=== PATIENT | male | born 1950 | race Caucasian/White ===

== ENCOUNTER 2017-02-17 14:44 | Inpatient (IN) | payer MEDICARE, MEDICAID ==
[~2017-02-17] VITALS: Ht 177.8 cm; Wt 95.0 kg
[2017-02-17] MEDS ORDERED: SODIUM CHLORIDE FLUSH 10ML SYR IVF ONE (15:00)
[2017-02-17] MEDS ORDERED: SODIUM CHLORIDE 0.9% 1,000ML IVBOLUS ONE (15:00)
[2017-02-17] MEDS ORDERED: PLEASE ENTER ALLERGIES MC SCH ×2 (15:00)
[2017-02-17] MEDS ORDERED: ONDANSETRON 2MG/ML, 2ML IVPush ONE (15:00)
[2017-02-17] MEDS ORDERED: ONDANSETRON 2MG/ML, 2ML ONE (15:05)
[2017-02-17 15:06] LABS: HEMATOCRIT 42.9 % (39.2-51.8); HEMOGLOBIN 14.4 g/dL (13.7-18.0); WHITE BLOOD COUNT 18.2 x10^3/uL (3.4-10)
[2017-02-17 15:17] LABS: ASPARTATE AMINO TRANSFERASE 13 U/L (15-37); BLOOD UREA NITROGEN 28 mg/dL (7-18)
[2017-02-17 15:50] LABS: DIFF TOTAL CELLS COUNTED 100 CELL DIFF
[2017-02-17 15:52] LABS: ANISOCYTOSIS 1+
[2017-02-17 15:53] LABS: VERIFY COUNTS? YES
[2017-02-17] MEDS ORDERED: ACETAMINOPHEN 500 MG TABLET ONE (17:14)
[2017-02-17] MEDS ORDERED: ACETAMINOPHEN 500 MG TABLET PO ONE (17:30)
[2017-02-17] MEDS ORDERED: LIDOCAINE 1%, 20ML ONE (18:13)
[2017-02-17] MEDS ORDERED: PHARMACOKINETIC CONSULTATION MC ONE ×2 (19:00→22:00)
[2017-02-17] MEDS ORDERED: VANCOMYCIN PER PHARMACY MC PRN ×2 (19:00→21:30)
[2017-02-17] MEDS ORDERED: VANCOMYCIN 1,800 MG in SODIUM CHLORIDE 0.9% 250 ML IV ONE (19:00)
[2017-02-17] MEDS ORDERED: CEFTRIAXONE 1,000 MG IM ONE (19:00)
[2017-02-17] MEDS ORDERED: CEFTRIAXONE PMX 1GM/50ML 50 ML ONE ×2 (19:20→19:33)
[2017-02-17] MEDS ORDERED: CEFTRIAXONE PMX 2GM/50ML 50 ML IV SCH (19:30)
[2017-02-17] MEDS ORDERED: CEFTRIAXONE PMX 2GM/50ML 50 ML IV ONE (19:35)
[2017-02-17] MEDS ORDERED: BUPR1FIL5 SL (19:57)
[2017-02-17] MEDS ORDERED: IBUP-1223 PO (19:57)
[2017-02-17] MEDS ORDERED: MIRT7.5T8 PO (19:57)
[2017-02-17] MEDS ORDERED: CLON0.25 PO (19:57)
[2017-02-17] MEDS ORDERED: TERA10CA3 PO (19:57)
[2017-02-17] MEDS ORDERED: ONDANSETRON 2MG/ML, 2ML IVPush PRN (21:30)
[2017-02-17] MEDS ORDERED: ACETAMINOPHEN 325 MG TABLET PO PRN (21:30)
[2017-02-17] MEDS ORDERED: morphine SULFATE 10 MG/ML, 1ML IVPush PRN (21:30)
[2017-02-17] MEDS: TERAZOSIN 5MG CAPSULE PO SCH (21:30)
[2017-02-17 22:00] VITALS: BP 116/78
[2017-02-17] MEDS ORDERED: PHARMACOKINETIC MONITORING MC PRN (22:00)
[2017-02-17] MEDS: ENOXAPARIN 40 MG/0.4 ML SQ SCH (23:04)
[2017-02-17] MEDS: MIRTAZAPINE 15 MG TABLET PO SCH (23:06)
[2017-02-17] MEDS: NS + 20MEQ KCL 1,000 ML IV SCH (23:06)
[2017-02-18] VITALS (9 sets, daily range): BP systolic 96–111; BP diastolic 54–73
[2017-02-18 05:58] LABS: BLOOD UREA NITROGEN 24 mg/dL (7-18)
[2017-02-18 06:06] LABS: HEMATOCRIT 36.5 % (39.2-51.8); HEMOGLOBIN 12.2 g/dL (13.7-18.0); WHITE BLOOD COUNT 11.1 x10^3/uL (3.4-10)
[2017-02-18] MEDS: NS + 20MEQ KCL 1,000 ML IV SCH (06:33)
[2017-02-18] MEDS ORDERED: [UNRECOGNIZED DRUG - OTHER] SL SCH (09:00)
[2017-02-18] MEDS ORDERED: BUPRENORPHINE HCL SL SCH (09:00)
[2017-02-18] MEDS ORDERED: NALOXONE HCL SL SCH (09:00)
[2017-02-18] MEDS: VANCOMYCIN 1,800 MG in SODIUM CHLORIDE 0.9% 250 ML IV SCH ×2 (10:09→22:43)
[2017-02-18] MEDS: SENNA/DOCUSATE TABLET PO SCH (10:09)
[2017-02-18] MEDS ORDERED: DIGOXIN 0.25 MG/ML, 2ML IVPush ONE (11:00)
[2017-02-18] MEDS ORDERED: FILTER 0.22 MICRON IV PRN (13:30)
[2017-02-18] MEDS ORDERED: AMIODARONE 150 MG in DEXTROSE 5% 100 ML IV ONE (13:30)
[2017-02-18] MEDS: IBUPROFEN 200 MG TABLET PO PRN ×2 (14:03→22:43)
[2017-02-18] MEDS: AMIODARONE 900 MG in DEXTROSE 5% 482 ML IV PRN (14:10)
[2017-02-18] MEDS ORDERED: BUPRENORPHINE 2 MG SL SCH (17:00)
[2017-02-18] MEDS: NALOXONE SL SCH (17:22)
[2017-02-18] MEDS: BUPRENORPHINE SL SCH (17:22)
[2017-02-18] MEDS ORDERED: METOPROLOL TARTRATE 25 MG TABLET PO SCH (18:30)
[2017-02-18] MEDS: CEFTRIAXONE PMX 1GM/50ML 50 ML IV SCH (19:57)
[2017-02-18] MEDS: DIGOXIN 0.25 MG/ML, 2ML IVPush SCH (21:34)
[2017-02-18] MEDS: ENOXAPARIN 40 MG/0.4 ML SQ SCH (21:34)
[2017-02-18] MEDS: MIRTAZAPINE 15 MG TABLET PO SCH (22:49)
[2017-02-18] MEDS: TERAZOSIN 5MG CAPSULE PO SCH (22:51)
[2017-02-19 02:13] VITALS: BP 106/68
[2017-02-19 05:30] VITALS: BP 100/67
[2017-02-19] MEDS: ASPIRIN 325 MG TABLET EC PO SCH (05:32)
[2017-02-19] MEDS: METOPROLOL TARTRATE 25 MG TABLET PO SCH ×2 (05:32→16:46)
[2017-02-19 05:35] LABS: HEMATOCRIT 34.7 % (39.2-51.8); HEMOGLOBIN 11.7 g/dL (13.7-18.0); WHITE BLOOD COUNT 10.5 x10^3/uL (3.4-10)
[2017-02-19 05:45] LABS: BLOOD UREA NITROGEN 20 mg/dL (7-18)
[2017-02-19] MEDS: DIGOXIN 0.25 MG/ML, 2ML IVPush SCH ×2 (09:00→11:25)
[2017-02-19] MEDS: BUPRENORPHINE SL SCH ×2 (09:12→16:46)
[2017-02-19] MEDS: NALOXONE SL SCH ×2 (09:12→16:46)
[2017-02-19] MEDS: SENNA/DOCUSATE TABLET PO SCH (09:15)
[2017-02-19] MEDS: VANCOMYCIN 1,800 MG in SODIUM CHLORIDE 0.9% 250 ML IV SCH ×2 (09:17→21:45)
[2017-02-19] MEDS: IBUPROFEN 200 MG TABLET PO PRN ×2 (09:18→21:46)
[2017-02-19 09:24] VITALS: BP 101/68
[2017-02-19] MEDS ORDERED: POTASSIUM CHLORIDE 40 MEQ in SODIUM CHLORIDE 0.9% 500 ML IV ONE (12:00)
[2017-02-19] MEDS: AMIODARONE 900 MG in DEXTROSE 5% 482 ML IV PRN (12:43)
[2017-02-19] MEDS: OxyconTIN ER 10 MG TAB.ER PO SCH (15:00)
[2017-02-19] MEDS ORDERED: OXYcodone IR 5MG TABLET PO PRN (15:00)
[2017-02-19 15:01] VITALS: BP 113/76
[2017-02-19 19:23] VITALS: BP 105/72
[2017-02-19] MEDS: CEFTRIAXONE PMX 1GM/50ML 50 ML IV SCH (20:08)
[2017-02-19] MEDS: ENOXAPARIN 40 MG/0.4 ML SQ SCH (21:45)
[2017-02-19] MEDS: MIRTAZAPINE 15 MG TABLET PO SCH (21:46)
[2017-02-19] MEDS: TERAZOSIN 5MG CAPSULE PO SCH (21:47)
[2017-02-20 01:07] VITALS: BP 106/71
[2017-02-20] MEDS: OxyconTIN ER 10 MG TAB.ER PO SCH ×2 (03:00→15:00)
[2017-02-20 05:55] VITALS: BP 118/77
[2017-02-20] MEDS: METOPROLOL TARTRATE 25 MG TABLET PO SCH ×2 (05:55→18:26)
[2017-02-20] MEDS: ASPIRIN 325 MG TABLET EC PO SCH (05:55)
[2017-02-20] MEDS: NALOXONE SL SCH ×2 (08:00→17:00)
[2017-02-20] MEDS: BUPRENORPHINE SL SCH ×2 (08:00→17:00)
[2017-02-20] MEDS: SENNA/DOCUSATE TABLET PO SCH (09:00)
[2017-02-20 09:11] VITALS: BP 113/74
[2017-02-20] MEDS ORDERED: KETAMINE 10 MG/ML, 20ML ONE (09:26)
[2017-02-20] MEDS ORDERED: FENTANYL PF 250 MCG/5ML ONE ×2 (09:26→10:11)
[2017-02-20] MEDS ORDERED: ROPIvacaine/PF 0.5%, 30 ML ONE (09:30)
[2017-02-20] MEDS ORDERED: ONDANSETRON 2MG/ML, 2ML ONE (09:52)
[2017-02-20] MEDS ORDERED: PROPOFOL 10 MG/ML, 20ML ONE (09:52)
[2017-02-20] MEDS ORDERED: KETOROLAC 30 MG/1 ML ONE (09:52)
[2017-02-20] MEDS ORDERED: PHENYLEPHRINE 10 MG/ML ONE (09:52)
[2017-02-20] MEDS ORDERED: EPHEDRINE 50 MG/ML, 1ML ONE (09:52)
[2017-02-20] MEDS: VANCOMYCIN 1,800 MG in SODIUM CHLORIDE 0.9% 250 ML IV SCH ×2 (10:00→15:55)
[2017-02-20] MEDS ORDERED: HYDROmorphone 2 MG/ML, 1ML ONE (10:08)
[2017-02-20] MEDS ORDERED: ALBUTEROL SULFATE 2.5 MG/3 ML NPPB PRN (11:30)
[2017-02-20] MEDS ORDERED: PROMETHAZINE 25 MG/ML, 1ML IV PRN (11:30)
[2017-02-20] MEDS ORDERED: METOPROLOL 1 MG/ML, 5ML IV PRN (11:30)
[2017-02-20] MEDS ORDERED: hydrALAzine 20 MG/ML, 1ML IV PRN (11:30)
[2017-02-20] MEDS ORDERED: ACETAMINOPHEN 325 MG TABLET PO PRN (11:30)
[2017-02-20] MEDS ORDERED: D5%-0.45NACL+KCL 20MEQ 1,000 ML IV SCH (12:12)
[2017-02-20] MEDS ORDERED: FENTANYL PF 100 MCG/2ML ONE (12:16)
[2017-02-20] MEDS: FENTANYL PF 100 MCG/2ML IV PRN ×2 (12:19→12:39)
[2017-02-20] MEDS: FENTANYL 1500 MCG/30 ML PCA IV PRN (13:00)
[2017-02-20] MEDS ORDERED: TRANEXAMIC ACID 1,000 MG in SODIUM CHLORIDE 0.9% 100 ML IVPB ONE (13:15)
[2017-02-20 15:59] VITALS: BP 93/62
[2017-02-20 18:55] VITALS: BP 98/63
[2017-02-20] MEDS: SODIUM CHLORIDE 0.9% 1,000 ML IV SCH (20:20)
[2017-02-20] MEDS: AMIODARONE 900 MG in DEXTROSE 5% 482 ML IV PRN (20:26)
[2017-02-20] MEDS: CEFAZOLIN PMX 2GM/50ML 50 ML IVPB SCH (20:30)
[2017-02-20] MEDS: MIRTAZAPINE 15 MG TABLET PO SCH (21:48)
[2017-02-20] MEDS: TERAZOSIN 5MG CAPSULE PO SCH (21:48)
[2017-02-21] MEDS: FENTANYL 1500 MCG/30 ML PCA IV PRN ×2 (01:18→11:58)
[2017-02-21 01:27] VITALS: BP 93/61
[2017-02-21] MEDS: OxyconTIN ER 10 MG TAB.ER PO SCH ×2 (03:03→15:00)
[2017-02-21] MEDS: VANCOMYCIN 1,800 MG in SODIUM CHLORIDE 0.9% 250 ML IV SCH ×3 (03:21→21:04)
[2017-02-21] MEDS: ENOXAPARIN 40 MG/0.4 ML SQ SCH (05:42)
[2017-02-21] MEDS: CEFAZOLIN PMX 2GM/50ML 50 ML IVPB SCH (05:42)
[2017-02-21] MEDS: METOPROLOL TARTRATE 25 MG TABLET PO SCH ×2 (05:43→16:57)
[2017-02-21] MEDS: ASPIRIN 325 MG TABLET EC PO SCH (05:43)
[2017-02-21 06:05] LABS: BLOOD UREA NITROGEN 19 mg/dL (7-18)
[2017-02-21 06:44] LABS: HEMATOCRIT 30.9 % (39.2-51.8); HEMOGLOBIN 10.2 g/dL (13.7-18.0); WHITE BLOOD COUNT 17.2 x10^3/uL (3.4-10)
[2017-02-21 07:00] VITALS: BP 91/61
[2017-02-21] MEDS: BUPRENORPHINE SL SCH ×2 (08:00→16:07)
[2017-02-21] MEDS: NALOXONE SL SCH ×2 (08:00→16:07)
[2017-02-21] MEDS: SENNA/DOCUSATE TABLET PO SCH (08:05)
[2017-02-21] MEDS: AMIODARONE 200 MG TABLET PO SCH ×2 (11:59→21:05)
[2017-02-21] MEDS: KETOROLAC 30 MG/1 ML IV SCH ×2 (12:02→21:04)
[2017-02-21 13:20] VITALS: BP 102/56
[2017-02-21 20:35] VITALS: BP 113/70
[2017-02-21] MEDS: TERAZOSIN 5MG CAPSULE PO SCH (21:05)
[2017-02-21] MEDS: MIRTAZAPINE 15 MG TABLET PO SCH (21:05)
[2017-02-21] MEDS: SODIUM CHLORIDE 0.9% 1,000 ML IV SCH (23:33)
[2017-02-22] MEDS: OxyconTIN ER 10 MG TAB.ER PO SCH ×2 (03:00→15:00)
[2017-02-22 03:24] VITALS: BP 103/66
[2017-02-22] MEDS: KETOROLAC 30 MG/1 ML IV SCH (04:28)
[2017-02-22 05:00] VITALS: BP 119/72
[2017-02-22] MEDS: FENTANYL 1500 MCG/30 ML PCA IV PRN ×3 (05:04→23:42)
[2017-02-22] MEDS: ASPIRIN 325 MG TABLET EC PO SCH (05:06)
[2017-02-22] MEDS: ENOXAPARIN 40 MG/0.4 ML SQ SCH (05:06)
[2017-02-22] MEDS: METOPROLOL TARTRATE 25 MG TABLET PO SCH ×2 (05:06→17:36)
[2017-02-22 09:00] VITALS: BP 104/63
[2017-02-22] MEDS: SENNA/DOCUSATE TABLET PO SCH (09:11)
[2017-02-22] MEDS: AMIODARONE 200 MG TABLET PO SCH ×2 (09:12→21:06)
[2017-02-22] MEDS: POLYETHYLENE GLYCOL 17 GM PACKET PO PRN (09:12)
[2017-02-22] MEDS ORDERED: FUROSEMIDE 40 MG/4 ML IV ONE (11:00)
[2017-02-22] MEDS: CEPHALEXIN 500 MG CAPSULE PO SCH ×3 (11:58→23:42)
[2017-02-22 14:46] VITALS: BP 103/65
[2017-02-22] MEDS: VANCOMYCIN 1,800 MG in SODIUM CHLORIDE 0.9% 250 ML IV SCH (15:28)
[2017-02-22] MEDS: LACTOBACILLUS CHEW TABLET PO SCH ×2 (15:28→21:07)
[2017-02-22 19:15] VITALS: BP 106/61
[2017-02-22] MEDS: MIRTAZAPINE 15 MG TABLET PO SCH (21:07)
[2017-02-22] MEDS: TERAZOSIN 5MG CAPSULE PO SCH (21:07)
[2017-02-22 21:16] VITALS: BP 114/70
[2017-02-23] MEDS: OxyconTIN ER 10 MG TAB.ER PO SCH ×2 (00:56→13:22)
[2017-02-23 01:00] VITALS: BP 106/63
[2017-02-23] MEDS: METOPROLOL TARTRATE 25 MG TABLET PO SCH ×2 (05:46→18:10)
[2017-02-23] MEDS: FENTANYL 1500 MCG/30 ML PCA IV PRN ×2 (05:46→22:25)
[2017-02-23] MEDS: ASPIRIN 325 MG TABLET EC PO SCH (05:46)
[2017-02-23] MEDS: CEPHALEXIN 500 MG CAPSULE PO SCH ×4 (05:46→22:58)
[2017-02-23] MEDS: ENOXAPARIN 40 MG/0.4 ML SQ SCH (05:47)
[2017-02-23 05:50] VITALS: BP 99/60
[2017-02-23] MEDS: LACTOBACILLUS CHEW TABLET PO SCH ×3 (08:51→21:15)
[2017-02-23] MEDS: SENNA/DOCUSATE TABLET PO SCH (08:51)
[2017-02-23] MEDS: AMIODARONE 200 MG TABLET PO SCH ×2 (08:51→21:15)
[2017-02-23] MEDS: FUROSEMIDE 20 MG TABLET PO SCH (08:51)
[2017-02-23 09:31] VITALS: BP 100/62
[2017-02-23] MEDS: VANCOMYCIN 1,800 MG in SODIUM CHLORIDE 0.9% 250 ML IV SCH (09:48)
[2017-02-23] MEDS: ERGOCALCIFEROL 50,000 UNIT CAPSULE PO SCH (10:26)
[2017-02-23 15:39] VITALS: BP 104/65
[2017-02-23 18:46] VITALS: BP 109/73
[2017-02-23] MEDS: CEFTRIAXONE PMX 2GM/50ML 50 ML IV SCH (19:54)
[2017-02-23 21:13] VITALS: BP 114/77
[2017-02-23] MEDS: MIRTAZAPINE 15 MG TABLET PO SCH (21:15)
[2017-02-23] MEDS: TERAZOSIN 5MG CAPSULE PO SCH (21:15)
[2017-02-24] MEDS: OxyconTIN ER 10 MG TAB.ER PO SCH ×2 (01:02→13:08)
[2017-02-24 02:20] VITALS: BP 125/77
[2017-02-24 05:04] LABS: HEMATOCRIT 29.7 % (39.2-51.8); HEMOGLOBIN 9.9 g/dL (13.7-18.0); WHITE BLOOD COUNT 13.4 x10^3/uL (3.4-10)
[2017-02-24 05:08] LABS: BLOOD UREA NITROGEN 14 mg/dL (7-18)
[2017-02-24 05:34] VITALS: BP 101/65
[2017-02-24] MEDS: CEPHALEXIN 500 MG CAPSULE PO SCH ×4 (05:36→23:05)
[2017-02-24] MEDS: ENOXAPARIN 40 MG/0.4 ML SQ SCH (05:36)
[2017-02-24] MEDS: ASPIRIN 325 MG TABLET EC PO SCH (05:36)
[2017-02-24] MEDS: METOPROLOL TARTRATE 25 MG TABLET PO SCH ×2 (05:36→17:02)
[2017-02-24] MEDS: POLYETHYLENE GLYCOL 17 GM PACKET PO PRN (06:23)
[2017-02-24] MEDS ORDERED: FUROSEMIDE 40 MG/4 ML IV ONE (09:00)
[2017-02-24 09:03] VITALS: BP 107/72
[2017-02-24] MEDS: LACTOBACILLUS CHEW TABLET PO SCH ×3 (09:03→21:19)
[2017-02-24] MEDS: AMIODARONE 200 MG TABLET PO SCH ×2 (09:04→21:19)
[2017-02-24] MEDS: FUROSEMIDE 20 MG TABLET PO SCH (09:04)
[2017-02-24] MEDS: SENNA/DOCUSATE TABLET PO SCH (09:04)
[2017-02-24] MEDS: FENTANYL 1500 MCG/30 ML PCA IV PRN (11:30)
[2017-02-24 15:17] VITALS: BP 98/61
[2017-02-24 16:59] VITALS: BP 109/73
[2017-02-24] MEDS: CEFTRIAXONE PMX 2GM/50ML 50 ML IV SCH (19:23)
[2017-02-24 21:16] VITALS: BP 107/73
[2017-02-24] MEDS: MIRTAZAPINE 15 MG TABLET PO SCH (21:19)
[2017-02-24] MEDS: DOCUSATE 100 MG CAPSULE PO PRN (21:19)
[2017-02-24] MEDS: TERAZOSIN 5MG CAPSULE PO SCH (21:19)
[2017-02-25] VITALS (8 sets, daily range): BP systolic 93–100; BP diastolic 49–70
[2017-02-25] MEDS: OxyconTIN ER 10 MG TAB.ER PO SCH (01:04)
[2017-02-25] MEDS: FENTANYL 1500 MCG/30 ML PCA IV PRN (01:04)
[2017-02-25 05:28] LABS: HEMATOCRIT 31.2 % (39.2-51.8); HEMOGLOBIN 10.2 g/dL (13.7-18.0); WHITE BLOOD COUNT 12.2 x10^3/uL (3.4-10)
[2017-02-25] MEDS: METOPROLOL TARTRATE 25 MG TABLET PO SCH ×2 (05:52→17:35)
[2017-02-25] MEDS: CEPHALEXIN 500 MG CAPSULE PO SCH (05:52)
[2017-02-25] MEDS: ASPIRIN 325 MG TABLET EC PO SCH (05:52)
[2017-02-25] MEDS: ENOXAPARIN 40 MG/0.4 ML SQ SCH (05:52)
[2017-02-25] MEDS: POLYETHYLENE GLYCOL 17 GM PACKET PO PRN (06:37)
[2017-02-25] MEDS: HYDROcodone/APAP 5/325 TABLET PO PRN ×2 (09:16→17:35)
[2017-02-25] MEDS: LACTOBACILLUS CHEW TABLET PO SCH ×3 (09:16→21:47)
[2017-02-25] MEDS: FUROSEMIDE 20 MG TABLET PO SCH (09:16)
[2017-02-25] MEDS: SENNA/DOCUSATE TABLET PO SCH (09:16)
[2017-02-25] MEDS: AMIODARONE 200 MG TABLET PO SCH ×2 (09:17→21:48)
[2017-02-25] MEDS ORDERED: FUROSEMIDE 40 MG/4 ML IV ONE (11:00)
[2017-02-25] MEDS: OxyconTIN ER 15 MG TAB.ER PO SCH ×2 (11:00→23:13)
[2017-02-25] MEDS ORDERED: FUROSEMIDE 40 MG/4 ML IVPush ONE (15:30)
[2017-02-25] MEDS: CEFTRIAXONE PMX 2GM/50ML 50 ML IV SCH (19:48)
[2017-02-25] MEDS: MIRTAZAPINE 15 MG TABLET PO SCH (21:47)
[2017-02-25] MEDS: TERAZOSIN 5MG CAPSULE PO SCH (21:48)
[2017-02-25] MEDS: DOCUSATE 100 MG CAPSULE PO PRN (21:56)
[2017-02-26 01:13] VITALS: BP 99/60
[2017-02-26 03:32] VITALS: BP 101/63
[2017-02-26] MEDS: HYDROcodone/APAP 5/325 TABLET PO PRN ×3 (03:32→14:07)
[2017-02-26] MEDS: METOPROLOL TARTRATE 25 MG TABLET PO SCH ×2 (06:00→17:10)
[2017-02-26] MEDS: ENOXAPARIN 40 MG/0.4 ML SQ SCH (06:04)
[2017-02-26] MEDS: POLYETHYLENE GLYCOL 17 GM PACKET PO PRN (06:04)
[2017-02-26] MEDS: ASPIRIN 325 MG TABLET EC PO SCH (06:04)
[2017-02-26 06:05] VITALS: BP 99/64
[2017-02-26] MEDS: AMIODARONE 200 MG TABLET PO SCH ×2 (08:28→20:44)
[2017-02-26] MEDS: FUROSEMIDE 20 MG TABLET PO SCH (08:28)
[2017-02-26] MEDS: LACTOBACILLUS CHEW TABLET PO SCH ×3 (08:28→20:44)
[2017-02-26] MEDS: SENNA/DOCUSATE TABLET PO SCH (08:28)
[2017-02-26] MEDS: DOCUSATE 100 MG CAPSULE PO PRN (08:28)
[2017-02-26] MEDS: OxyconTIN ER 15 MG TAB.ER PO SCH ×2 (11:21→23:20)
[2017-02-26 12:50] VITALS: BP 104/61
[2017-02-26] MEDS: FUROSEMIDE 40 MG/4 ML IV SCH (14:07)
[2017-02-26] MEDS: MEPERIDINE/PF 25MG/0.5ML IVPush PRN ×2 (17:10→20:56)
[2017-02-26 17:11] VITALS: BP 99/65
[2017-02-26 19:19] VITALS: BP 104/68
[2017-02-26] MEDS: CEFTRIAXONE PMX 2GM/50ML 50 ML IV SCH (20:32)
[2017-02-26] MEDS: TERAZOSIN 5MG CAPSULE PO SCH (20:44)
[2017-02-26] MEDS: MIRTAZAPINE 15 MG TABLET PO SCH (20:44)
[2017-02-27 00:50] VITALS: BP 105/67
[2017-02-27] MEDS: MEPERIDINE/PF 25MG/0.5ML IVPush PRN ×6 (00:58→23:57)
[2017-02-27 05:26] LABS: BLOOD UREA NITROGEN 18 mg/dL (7-18)
[2017-02-27] MEDS: ASPIRIN 325 MG TABLET EC PO SCH (06:46)
[2017-02-27] MEDS: METOPROLOL TARTRATE 25 MG TABLET PO SCH ×2 (06:46→17:05)
[2017-02-27] MEDS: ENOXAPARIN 40 MG/0.4 ML SQ SCH (06:48)
[2017-02-27] MEDS: FUROSEMIDE 40 MG/4 ML IV SCH (07:46)
[2017-02-27] MEDS: LACTOBACILLUS CHEW TABLET PO SCH ×3 (07:47→19:49)
[2017-02-27] MEDS: SENNA/DOCUSATE TABLET PO SCH (07:47)
[2017-02-27] MEDS: FUROSEMIDE 20 MG TABLET PO SCH (07:47)
[2017-02-27] MEDS: AMIODARONE 200 MG TABLET PO SCH ×2 (07:47→19:50)
[2017-02-27 08:15] VITALS: BP 118/77
[2017-02-27] MEDS: OxyconTIN ER 15 MG TAB.ER PO SCH ×2 (10:42→22:30)
[2017-02-27 14:48] VITALS: BP 105/71
[2017-02-27 17:05] VITALS: BP 99/68
[2017-02-27] MEDS: CEFTRIAXONE PMX 2GM/50ML 50 ML IV SCH (19:14)
[2017-02-27 19:46] VITALS: BP 111/74
[2017-02-27] MEDS: TERAZOSIN 5MG CAPSULE PO SCH (19:50)
[2017-02-27] MEDS: MIRTAZAPINE 15 MG TABLET PO SCH (19:50)
[2017-02-27] MEDS ORDERED: ONDANSETRON 2MG/ML, 2ML IVPush PRN (21:00)
[2017-02-27] MEDS ORDERED: ACETAMINOPHEN 325 MG TABLET PO PRN (21:00)
[2017-02-28] MEDS: HYDROcodone/APAP 5/325 TABLET PO PRN ×6 (00:57→22:01)
[2017-02-28 01:06] VITALS: BP 106/63
[2017-02-28] MEDS: MEPERIDINE/PF 25MG/0.5ML IVPush PRN ×4 (04:32→20:20)
[2017-02-28 05:30] LABS: HEMATOCRIT 31.8 % (39.2-51.8); HEMOGLOBIN 10.4 g/dL (13.7-18.0); WHITE BLOOD COUNT 11.4 x10^3/uL (3.4-10)
[2017-02-28 05:34] LABS: BLOOD UREA NITROGEN 17 mg/dL (7-18)
[2017-02-28] MEDS: METOPROLOL TARTRATE 25 MG TABLET PO SCH ×2 (06:32→17:38)
[2017-02-28] MEDS: ENOXAPARIN 40 MG/0.4 ML SQ SCH (06:33)
[2017-02-28] MEDS: ASPIRIN 325 MG TABLET EC PO SCH (06:33)
[2017-02-28 06:34] VITALS: BP 111/66
[2017-02-28] MEDS: AMIODARONE 200 MG TABLET PO SCH ×2 (09:01→22:01)
[2017-02-28] MEDS: LACTOBACILLUS CHEW TABLET PO SCH ×3 (09:01→22:01)
[2017-02-28] MEDS: SENNA/DOCUSATE TABLET PO SCH (09:01)
[2017-02-28] MEDS: FUROSEMIDE 20 MG TABLET PO SCH (09:01)
[2017-02-28] MEDS: OxyconTIN ER 15 MG TAB.ER PO SCH (10:25)
[2017-02-28] MEDS: FUROSEMIDE 40 MG/4 ML IV SCH (10:25)
[2017-02-28 12:48] VITALS: BP 104/66
[2017-02-28 17:35] VITALS: BP 107/69
[2017-02-28 19:26] VITALS: BP 107/61
[2017-02-28] MEDS: CEFTRIAXONE PMX 2GM/50ML 50 ML IV SCH (20:20)
[2017-02-28] MEDS: TERAZOSIN 5MG CAPSULE PO SCH (22:01)
[2017-02-28] MEDS: MIRTAZAPINE 15 MG TABLET PO SCH (22:01)
[2017-03-01] MEDS: MEPERIDINE/PF 25MG/0.5ML IVPush PRN ×6 (00:05→21:45)
[2017-03-01] MEDS: IBUPROFEN 200 MG TABLET PO PRN ×2 (00:05→15:34)
[2017-03-01] MEDS: OxyconTIN ER 15 MG TAB.ER PO SCH ×2 (00:05→13:32)
[2017-03-01] MEDS: HYDROcodone/APAP 5/325 TABLET PO PRN ×5 (02:13→19:50)
[2017-03-01 02:39] VITALS: BP 90/48
[2017-03-01 05:15] LABS: HEMOGLOBIN 10.1 g/dL (13.7-18.0)
[2017-03-01 05:28] LABS: BLOOD UREA NITROGEN 22 mg/dL (7-18)
[2017-03-01] MEDS: METOPROLOL TARTRATE 25 MG TABLET PO SCH ×2 (06:33→17:36)
[2017-03-01] MEDS: ENOXAPARIN 40 MG/0.4 ML SQ SCH (06:33)
[2017-03-01] MEDS: ASPIRIN 325 MG TABLET EC PO SCH (06:33)
[2017-03-01 06:34] VITALS: BP 101/56
[2017-03-01 07:29] VITALS: BP 103/67
[2017-03-01] MEDS: LACTOBACILLUS CHEW TABLET PO SCH ×3 (07:51→21:45)
[2017-03-01] MEDS: SENNA/DOCUSATE TABLET PO SCH (07:51)
[2017-03-01] MEDS: AMIODARONE 200 MG TABLET PO SCH ×2 (07:51→21:46)
[2017-03-01] MEDS: FUROSEMIDE 20 MG TABLET PO SCH (10:51)
[2017-03-01 12:31] VITALS: BP 111/70
[2017-03-01] MEDS: CEFTRIAXONE PMX 2GM/50ML 50 ML IV SCH (19:50)
[2017-03-01 20:29] VITALS: BP 113/71
[2017-03-01] MEDS: MIRTAZAPINE 15 MG TABLET PO SCH (21:46)
[2017-03-01] MEDS: TERAZOSIN 5MG CAPSULE PO SCH (21:46)
[2017-03-02] MEDS: HYDROcodone/APAP 5/325 TABLET PO PRN ×2 (00:04→04:00)
[2017-03-02] MEDS: OxyconTIN ER 15 MG TAB.ER PO SCH ×2 (00:53→13:09)
[2017-03-02] MEDS: MEPERIDINE/PF 25MG/0.5ML IVPush PRN ×4 (01:31→23:18)
[2017-03-02 01:40] VITALS: BP 125/80
[2017-03-02 05:55] LABS: HEMATOCRIT 32.2 % (39.2-51.8); HEMOGLOBIN 10.5 g/dL (13.7-18.0)
[2017-03-02 06:03] LABS: BLOOD UREA NITROGEN 18 mg/dL (7-18)
[2017-03-02] MEDS: METOPROLOL TARTRATE 25 MG TABLET PO SCH ×2 (06:34→18:00)
[2017-03-02] MEDS: ENOXAPARIN 40 MG/0.4 ML SQ SCH (06:35)
[2017-03-02] MEDS: ASPIRIN 325 MG TABLET EC PO SCH (07:58)
[2017-03-02] MEDS: OXYcodone/APAP 5/325MG TABLET PO PRN ×4 (08:14→21:05)
[2017-03-02] MEDS: SENNA/DOCUSATE TABLET PO SCH (08:16)
[2017-03-02] MEDS: FUROSEMIDE 20 MG TABLET PO SCH (08:16)
[2017-03-02] MEDS: ERGOCALCIFEROL 50,000 UNIT CAPSULE PO SCH (08:16)
[2017-03-02] MEDS: LACTOBACILLUS CHEW TABLET PO SCH ×3 (08:16→21:10)
[2017-03-02] MEDS: AMIODARONE 200 MG TABLET PO SCH ×2 (08:16→21:04)
[2017-03-02 08:54] VITALS: BP 94/49
[2017-03-02 15:13] VITALS: BP 108/72
[2017-03-02] MEDS: IBUPROFEN 200 MG TABLET PO PRN (19:22)
[2017-03-02] MEDS: CEFTRIAXONE PMX 2GM/50ML 50 ML IV SCH (19:22)
[2017-03-02 19:46] VITALS: BP 113/69
[2017-03-02] MEDS: TERAZOSIN 5MG CAPSULE PO SCH (21:05)
[2017-03-02] MEDS: MIRTAZAPINE 15 MG TABLET PO SCH (23:11)
[2017-03-03] MEDS: OxyconTIN ER 15 MG TAB.ER PO SCH ×2 (01:00→13:05)
[2017-03-03] MEDS: IBUPROFEN 200 MG TABLET PO PRN ×2 (01:00→14:34)
[2017-03-03 02:31] VITALS: BP 96/62
[2017-03-03] MEDS: OXYcodone/APAP 5/325MG TABLET PO PRN ×3 (03:39→16:52)
[2017-03-03] MEDS: METOPROLOL TARTRATE 25 MG TABLET PO SCH ×2 (05:44→16:53)
[2017-03-03] MEDS: ENOXAPARIN 40 MG/0.4 ML SQ SCH (05:44)
[2017-03-03] MEDS: ASPIRIN 325 MG TABLET EC PO SCH (05:44)
[2017-03-03] MEDS: MEPERIDINE/PF 25MG/0.5ML IVPush PRN (05:49)
[2017-03-03 07:31] VITALS: BP 123/66
[2017-03-03] MEDS: FUROSEMIDE 20 MG TABLET PO SCH (08:50)
[2017-03-03] MEDS: LACTOBACILLUS CHEW TABLET PO SCH ×3 (08:50→22:01)
[2017-03-03] MEDS: AMIODARONE 200 MG TABLET PO SCH ×2 (08:50→21:59)
[2017-03-03] MEDS: SENNA/DOCUSATE TABLET PO SCH (08:51)
[2017-03-03 13:17] VITALS: BP 103/69
[2017-03-03] MEDS: CEFTRIAXONE PMX 2GM/50ML 50 ML IV SCH (20:01)
[2017-03-03] MEDS: TERAZOSIN 5MG CAPSULE PO SCH (22:01)
[2017-03-03] MEDS: MIRTAZAPINE 15 MG TABLET PO SCH (22:02)
[2017-03-03 22:05] VITALS: BP 114/63
[2017-03-04] MEDS: OxyconTIN ER 15 MG TAB.ER PO SCH ×2 (00:57→12:40)
[2017-03-04] MEDS: OXYcodone/APAP 5/325MG TABLET PO PRN ×5 (00:57→21:07)
[2017-03-04 01:45] VITALS: BP 105/66
[2017-03-04] MEDS: IBUPROFEN 200 MG TABLET PO PRN ×2 (04:27→12:40)
[2017-03-04] MEDS: ENOXAPARIN 40 MG/0.4 ML SQ SCH (06:11)
[2017-03-04] MEDS: ASPIRIN 325 MG TABLET EC PO SCH (06:11)
[2017-03-04] MEDS: METOPROLOL TARTRATE 25 MG TABLET PO SCH ×2 (06:12→17:11)
[2017-03-04 08:49] VITALS: BP 97/61
[2017-03-04] MEDS: LACTOBACILLUS CHEW TABLET PO SCH ×3 (08:52→21:07)
[2017-03-04] MEDS: AMIODARONE 200 MG TABLET PO SCH ×2 (08:52→21:07)
[2017-03-04] MEDS: SENNA/DOCUSATE TABLET PO SCH (08:52)
[2017-03-04] MEDS: FUROSEMIDE 20 MG TABLET PO SCH (08:52)
[2017-03-04] MEDS: POLYETHYLENE GLYCOL 17 GM PACKET PO PRN (13:19)
[2017-03-04 14:45] VITALS: BP 106/75
[2017-03-04] MEDS ORDERED: CLOTRIMAZOLE CRM 1%, 15GM TP PRN (17:00)
[2017-03-04 19:49] VITALS: BP 108/68
[2017-03-04] MEDS: CEFTRIAXONE PMX 2GM/50ML 50 ML IV SCH (19:50)
[2017-03-04] MEDS: TERAZOSIN 5MG CAPSULE PO SCH (21:07)
[2017-03-04] MEDS: MIRTAZAPINE 15 MG TABLET PO SCH (22:19)
[2017-03-05] MEDS: OxyconTIN ER 15 MG TAB.ER PO SCH (01:03)
[2017-03-05] MEDS: OXYcodone/APAP 5/325MG TABLET PO PRN ×3 (01:04→09:01)
[2017-03-05 01:14] VITALS: BP 100/64
[2017-03-05] MEDS: METOPROLOL TARTRATE 25 MG TABLET PO SCH (05:51)
[2017-03-05] MEDS: ASPIRIN 325 MG TABLET EC PO SCH (05:51)
[2017-03-05] MEDS: ENOXAPARIN 40 MG/0.4 ML SQ SCH (05:52)
[2017-03-05 07:12] VITALS: BP 117/75
[2017-03-05] MEDS: SENNA/DOCUSATE TABLET PO SCH (09:01)
[2017-03-05] MEDS: LACTOBACILLUS CHEW TABLET PO SCH (09:01)
[2017-03-05] MEDS: FUROSEMIDE 20 MG TABLET PO SCH (09:01)
[2017-03-05] MEDS: AMIODARONE 200 MG TABLET PO SCH (09:01)
[2017-03-05] MEDS ORDERED: ENOX40SY4 SQ (11:00)
[2017-03-05] MEDS ORDERED: OXYC15TA60 PO (11:00)
[2017-03-05] MEDS ORDERED: FURO20TA3 PO (11:00)
[2017-03-05] MEDS ORDERED: METO25TA35 PO (11:00)
[2017-03-05] MEDS ORDERED: OXYC1TAB7 PO (11:00)
[2017-03-05] MEDS ORDERED: CLON-364 PO (11:00)
[2017-03-05] MEDS ORDERED: AMIO200T42 PO (11:00)
[2017-03-05] MEDS: IBUPROFEN 200 MG TABLET PO PRN (11:16)
[2017-03-05 11:17] VITALS: BP 92/58
== END 2017-03-05 11:55 | DRG 485 ==
LOC: ED 19:06 → EDIP 20:39 → SUATTDRO 21:05 → 4NOR 21:30 → 5SO 02-18 11:30 → 4NOR 02-22 19:45
PROVIDERS: ADMIT Family Medicine; ATTEND Family Medicine
PROC: 0S9D3ZZ Drainage of Left Knee Joint, Percutaneous Approach (ICD-10-PCS; 2017-02-17)
PROC: 0SBC0ZZ Excision of Right Knee Joint, Open Approach (ICD-10-PCS; 2017-02-20)
PROC: 0SPC09Z Removal of Liner from Right Knee Joint, Open Approach (ICD-10-PCS; 2017-02-20)
PROC: 0SUV09Z Supplement Right Knee Joint, Tibial Surface with Liner, Open Approach (ICD-10-PCS; 2017-02-20)
PROC: 02HV33Z Insertion of Infusion Device into Superior Vena Cava, Percutaneous Approach (ICD-10-PCS; principal; 2017-03-03)
PROC: B548ZZA Ultrasonography of Superior Vena Cava, Guidance (ICD-10-PCS; 2017-03-03)
PROC: B5181ZA Fluoroscopy of Superior Vena Cava using Low Osmolar Contrast, Guidance (ICD-10-PCS; 2017-03-03)
DX: T84.54XA Infection and inflammatory reaction due to internal left knee prosthesis, initial encounter (principal); A41.9 Sepsis, unspecified organism; M00.9 Pyogenic arthritis, unspecified; D68.69 Other thrombophilia; M00.262 Other streptococcal arthritis, left knee; E87.6 Hypokalemia; G89.29 Other chronic pain; I48.91 Unspecified atrial fibrillation; M65.9 Synovitis and tenosynovitis, unspecified; S91.331A Puncture wound without foreign body, right foot, initial encounter; Y83.1 Surgical operation with implant of artificial internal device as the cause of abnormal reaction of the patient, or of later complication, without mention of misadventure at the time of the procedure; T63.301A Toxic effect of unspecified spider venom, accidental (unintentional), initial encounter; Z53.20 Procedure and treatment not carried out because of patient's decision for unspecified reasons; Z66 Do not resuscitate; F41.9 Anxiety disorder, unspecified; Z96.652 Presence of left artificial knee joint; B95.0 Streptococcus, group A, as the cause of diseases classified elsewhere; Y92.89 Other specified places as the place of occurrence of the external cause; Y93.89 Activity, other specified
CPT/HCPCS: 20610; 36415; 36569; 76937; 77001; 80048; 80053; 80202; 82306; 82607; 82945; 83605; 83615; 83690; 83735; 84145; 84157; 84560; 85025; 85610; 85651; 85730; 85810; 86141; 87040; 87070; 87077; 87147; 87181; 87205; 89050; 89060; 93005; 93306; 93970; 96361; 96365; 96375; J0690; J0696; J1170; J1650; J1885; J1940; J2175; J2405; J2704; J2795; J3010; J3370; J3480; C1751; C1776; J0282; J1160; J2270; J2370; J7030; J7040; J7050; J7060

== ENCOUNTER 2017-04-27 19:16 | Inpatient (IN) | payer MEDICARE, MEDICAID ==
[~2017-04-27] VITALS: Ht 177.8 cm; Wt 103.5 kg
[~2017-04-27 19:16] MED LIST: AMIO200T42 PO; BUPR1FIL5 SL; CLON-364 PO; CLON0.25 PO; ENOX40SY4 SQ; FURO20TA3 PO; IBUP-1223 PO; METO25TA35 PO; MIRT7.5T8 PO; OXYC15TA60 PO; OXYC1TAB7 PO; TERA10CA3 PO
[2017-04-27] MEDS ORDERED: SODIUM CHLORIDE FLUSH 10ML SYR IVF ONE (20:00)
[2017-04-27 20:23] LABS: BLOOD UREA NITROGEN 20 mg/dL (7-18)
[2017-04-27] MEDS ORDERED: SODIUM CHLORIDE 0.9% 1,000ML IVBOLUS ONE (20:30)
[2017-04-27 20:32] LABS: IS PT STATUS REG ER OR PRE ER? YES
[2017-04-27 20:46] LABS: HEMATOCRIT 34.5 % (39.2-51.8); HEMOGLOBIN 11.3 g/dL (13.7-18.0); WHITE BLOOD COUNT 7.4 x10^3/uL (3.4-10)
[2017-04-27] MEDS ORDERED: MORPHINE SULFATE 4 MG/ML, 1ML IVPush ONE (21:30)
[2017-04-27] MEDS ORDERED: ONDANSETRON 2MG/ML, 2ML IVPush ONE (21:30)
[2017-04-27] MEDS ORDERED: MORPHINE SULFATE 4 MG/ML, 1ML ONE (21:33)
[2017-04-27] MEDS ORDERED: ONDANSETRON 2MG/ML, 2ML ONE (21:33)
[2017-04-27] MEDS ORDERED: OMNIPAQUE 350 MG/ML, 100ML BOTTLE ONE (22:20)
[2017-04-27] MEDS: AMIODARONE 200 MG TABLET PO SCH (23:00)
[2017-04-27] MEDS ORDERED: ENOXAPARIN 100 MG/ML SQ ONE (23:00)
[2017-04-27] MEDS ORDERED: ACETAMINOPHEN 325 MG TABLET PO PRN (23:30)
[2017-04-28 00:06] VITALS: BP 127/80
[2017-04-28 01:41] VITALS: BP 125/77
[2017-04-28] MEDS: APIXABAN 5 MG TABLET PO SCH ×3 (01:44→23:08)
[2017-04-28] MEDS: OXYcodone/APAP 5/325MG TABLET PO PRN ×5 (01:44→21:12)
[2017-04-28] MEDS: OxyconTIN ER 15 MG TAB.ER PO SCH ×3 (01:44→23:12)
[2017-04-28] MEDS: MIRTAZAPINE 15 MG TABLET PO SCH ×2 (02:09→23:09)
[2017-04-28 08:19] VITALS: BP 109/69
[2017-04-28] MEDS: AMIODARONE 200 MG TABLET PO SCH ×2 (08:39→23:08)
[2017-04-28] MEDS: METOPROLOL TARTRATE 25 MG TABLET PO SCH ×2 (08:41→18:26)
[2017-04-28] MEDS ORDERED: POTASSIUM CHLORIDE 20 MEQ TAB.ER.PRT ONE ×2 (08:42→08:45)
[2017-04-28] MEDS ORDERED: FUROSEMIDE 40 MG/4 ML ONE (08:42)
[2017-04-28] MEDS: FUROSEMIDE 40 MG/4 ML IV SCH ×2 (08:43→16:38)
[2017-04-28] MEDS ORDERED: FUROSEMIDE 20 MG TABLET PO SCH (09:00)
[2017-04-28] MEDS ORDERED: POTASSIUM CHLORIDE 20 MEQ TAB.ER.PRT PO ONE (09:00)
[2017-04-28] MEDS ORDERED: ENOXAPARIN 100 MG/ML SQ SCH (11:00)
[2017-04-28] MEDS ORDERED: CEPH-376 PO (11:48)
[2017-04-28 13:18] VITALS: BP 103/70
[2017-04-28] MEDS: FLORASTOR 250 MG CAPSULE PO SCH (13:57)
[2017-04-28] MEDS: CEPHALEXIN 500 MG CAPSULE PO SCH ×2 (13:58→21:08)
[2017-04-28 20:11] VITALS: BP 119/75
[2017-04-28] MEDS ORDERED: TERAZOSIN 5MG CAPSULE PO SCH (21:00)
[2017-04-29 02:24] VITALS: BP 125/78
[2017-04-29] MEDS: CEPHALEXIN 500 MG CAPSULE PO SCH ×3 (05:21→12:33)
[2017-04-29] MEDS: OXYcodone/APAP 5/325MG TABLET PO PRN ×2 (05:21→11:05)
[2017-04-29] MEDS: METOPROLOL TARTRATE 25 MG TABLET PO SCH (05:23)
[2017-04-29] MEDS ORDERED: APIX5TAB PO ×2 (07:03)
[2017-04-29] MEDS ORDERED: FUROSEMIDE 40 MG TABLET PO SCH (08:00)
[2017-04-29] MEDS: FLORASTOR 250 MG CAPSULE PO SCH (08:11)
[2017-04-29] MEDS: APIXABAN 5 MG TABLET PO SCH (08:11)
[2017-04-29] MEDS: AMIODARONE 200 MG TABLET PO SCH (08:11)
[2017-04-29 08:54] VITALS: BP 104/69
[2017-04-29] MEDS: OxyconTIN ER 15 MG TAB.ER PO SCH (12:31)
== END 2017-04-29 16:07 | disposition home or self-care (01) | DRG 176 ==
LOC: ED 22:08 → EDIP 23:03 → 5SO 23:42 → OBSVTOIN 04-28 14:11
PROVIDERS: ADMIT Hospitalist; ATTEND Hospitalist
DX: I26.99 Other pulmonary embolism without acute cor pulmonale (principal); M00.9 Pyogenic arthritis, unspecified; J98.11 Atelectasis; D64.9 Anemia, unspecified; N40.0 Benign prostatic hyperplasia without lower urinary tract symptoms; Z79.01 Long term (current) use of anticoagulants; Z88.0 Allergy status to penicillin; R07.81 Pleurodynia
CPT/HCPCS: 36415; 71010; 71275; 80048; 82040; 83880; 84484; 85025; 93005; 93306; 96361; 96372; 96374; 96375; G0378; J1650; J1940; J2405; Q9967; J7030

== ENCOUNTER 2017-10-26 16:04 | Emergency (ER) | payer MEDICARE, MEDICAID ==
[~2017-10-26] VITALS: Ht 180.3 cm; Wt 101.0 kg
[~2017-10-26 16:04] MED LIST changes: +APIX5TAB PO; +CEPH-376 PO
[2017-10-26 16:50] LABS: BASOPHILS # (AUTO) 0.02 x10^3/uL (0-0.1); BASOPHILS % (AUTO) 0 % (0-1); EOSINOPHILS # (AUTO) 0.12 x10^3/uL (0-0.4); EOSINOPHILS % (AUTO) 2 % (1-7); LYMPHOCYTES # (AUTO) 1.62 x10^3/uL (1-3.4); LYMPHOCYTES % (AUTO) 22 % (22-44); MD NO; MEAN CORPUSCULAR HEMOGLOBIN 28.5 pg (27.5-34.5); MEAN CORPUSCULAR HGB CONC 33.1 g/dL (33.2-36.2); MEAN CORPUSCULAR VOLUME 85.9 fL (81-97); MEAN PLATELET VOLUME 7.4 fL (7.4-10.4); MONOCYTES # (AUTO) 0.38 x10^3/uL (0.2-0.8); MONOCYTES % (AUTO) 5 % (2-9); NEUTROPHILS # (AUTO) 5.33 x10^3/uL (1.8-6.8); NEUTROPHILS % (AUTO) 71 % (42-75); PLATELET COUNT 202 x10^3/uL (130-400); RED BLOOD COUNT 5.43 x10^6/uL (4.38-5.82); RED CELL DISTRIBUTION WIDTH 17.8 % (9.4-14.8)
[2017-10-26 16:55] LABS: INTERNATIONAL NORMALIZED RATIO 0.99 (0.93-1.1); PROTHROMBIN TIME 10.3 Seconds (9.6-11.5)
[2017-10-26 16:59] LABS: ALANINE AMINOTRANSFERASE 18 U/L (12-78); ALBUMIN 3.8 g/dL (3.4-5.0); ANION GAP 9 mmol/L (5-15); CALCIUM 8.6 mg/dL (8.5-10.1); CHLORIDE 109 mmol/L (98-107)
[2017-10-26] MEDS ORDERED: DIPHENHYDRAMINE 50 MG/ML, 1ML IVPush ONE (17:00)
[2017-10-26 17:02] LABS: ALKALINE PHOSPHATASE 98 U/L (45-117); BILIRUBIN,TOTAL 0.3 mg/dL (0.2-1.0); CREATININE 1.15 mg/dL (0.7-1.3); TOTAL PROTEIN 7.3 g/dL (6.4-8.2)
[2017-10-26] MEDS ORDERED: DIPHENHYDRAMINE 50 MG/ML, 1ML ONE (17:28)
[2017-10-26] MEDS ORDERED: KETOROLAC 30 MG/1 ML ONE (17:28)
[2017-10-26] MEDS ORDERED: PROCHLORPERAZINE 5 MG/ML, 2ML ONE (17:28)
[2017-10-26] MEDS ORDERED: APIX5TAB PO (17:40)
[2017-10-26] MEDS ORDERED: CEPH-368 PO (17:42)
[2017-10-26] MEDS ORDERED: KETOROLAC 30 MG/1 ML IVPush ONE (18:00)
[2017-10-26] MEDS ORDERED: SODIUM CHLORIDE FLUSH 10ML SYR IVF ONE (18:00)
[2017-10-26] MEDS ORDERED: SODIUM CHLORIDE 0.9% 1,000ML IVBOLUS ONE (18:00)
[2017-10-26] MEDS ORDERED: PROCHLORPERAZINE 5 MG/ML, 2ML IVPush ONE (18:00)
[2017-10-26 18:38] VITALS: BP 115/76
== END 2017-10-26 19:38 | disposition home or self-care (01) ==
LOC: ED 18:12
DX: G44.329 Chronic post-traumatic headache, not intractable (principal); N40.0 Benign prostatic hyperplasia without lower urinary tract symptoms; Z86.711 Personal history of pulmonary embolism
CPT/HCPCS: 36415; 70450; 80053; 85025; 85610; 85730; 93005; 96361; 96374; 96375; 99285; J0780; J1200; J1885; J7030

== ENCOUNTER 2019-02-21 12:31 | Emergency (ER) | payer MEDICARE, MEDICAID ==
[~2019-02-21] VITALS: Ht 175.3 cm; Wt 116.0 kg
[2019-02-21 19:03] VITALS: BP 104/77
== END 2019-02-21 19:47 | disposition home or self-care (01) ==
LOC: ED 15:18
DX: M79.604 Pain in right leg (principal); M79.601 Pain in right arm; R10.30 Lower abdominal pain, unspecified; I48.91 Unspecified atrial fibrillation; N40.0 Benign prostatic hyperplasia without lower urinary tract symptoms
CPT/HCPCS: 36415; 71045; 71275; 74175; 80048; 82040; 83880; 84484; 85025; 93005; 93971; 96374; 96375; 99284; J2270; J2405; Q9967